=== PATIENT | male | born 1980 | race Caucasian/White ===

== ENCOUNTER 2018-05-28 19:04 | Emergency (ER) | payer OTHER ==
[~2018-05-28] VITALS: Ht 190.5 cm; Wt 95.3 kg
[2018-05-28] MEDS ORDERED: IBUPROFEN 800800 MG PO (20:38)
[2018-05-28 20:45] VITALS: BP 138/87
== END 2018-05-28 20:45 | disposition home or self-care (01) ==
LOC: M.ERS 19:04
DX: M25.512 Pain in left shoulder (principal); M54.5 Low back pain; F17.200 Nicotine dependence, unspecified, uncomplicated; Z85.47 Personal history of malignant neoplasm of testis; V43.03XA Car driver injured in collision with pick-up truck in nontraffic accident, initial encounter; Y93.89 Activity, other specified; Y92.89 Other specified places as the place of occurrence of the external cause; Y99.8 Other external cause status

== ENCOUNTER 2018-09-29 12:15 | Emergency (ER) | payer OTHER ==
[~2018-09-29] VITALS: Ht 190.5 cm; Wt 93.0 kg
[~2018-09-29 12:15] MED LIST: IBUPROFEN 800800 MG PO
[2018-09-29 13:00] LABS: HEMATOCRIT 41.9 % (42.0-52.0); HEMOGLOBIN 14.5 gm/dL (14.0-18.0); MCH 31.6 pg (26.0-34.0); MCHC 34.5 g/dL (28.0-37.0); MCV 91.6 fL (80.0-100.0); MPV 8.2 fl. (7.2-11.1); RBC 4.57 mil/uL (4.50-6.00); RDW-CV 13.5 % (10.5-14.5); WBC 13.1 thou/uL (4.0-11.0)
[2018-09-29 13:14] LABS: ANION GAP 11 mmol/L (7-16); BUN 16 mg/dL (7-18); CALCIUM 8.9 mg/dL (8.5-10.1); CHLORIDE 104 mmol/L (98-107); CO2 24 mmol/L (21-32); CREATININE 1.1 mg/dL (0.6-1.3); GLUCOSE 118 mg/dL (70-99); SODIUM 139 mmol/L (136-145)
[2018-09-29 13:23] LABS: TROPONIN-I LEVEL <0.06 ng/mL (<0.06)
[2018-09-29] MEDS ORDERED: ZPAK PO (14:10)
[2018-09-29 14:26] VITALS: BP 128/79
--- NOTE | 2018-10-01 12:36 | EKG ---
[place] [address] ELECTROCARDIOGRAM REPORT Name: SAMMIETevinNING Room: [facility]#: [id number] Admission: 09/29/18 Attend Phys: Discharge: 09/29/18 Date of : 80 Report #: [id number] THIS REPORT FOR: //name// [facility] ED Test Date: 2018-09-29 Test Time: 12:23:06 Pat Name: NING TIWARI Department: Room: Gender: Speech Language Pathologist Travel: [place] : 1980 Requested By: Apollo Mcclellan Order Number: [id number] Ulises MD: Ezequiel Wheat Measurements Intervals [place] Rate: 65 P: 50 MA: 134 QRS: 65 QRSD: 90 T: 46 QT: 398 QTc: 414 Interpretive Statements Sinus rhythm No previous ECG available for comparison Electronically Signed On 10-01-2018 12:35:57 CDT by Ezequiel Wheat [email or web address] <ELECTRONICALLY SIGNED> By: Ezequiel Wheat MD, [facility] 10/01/18 1235 1223 1223 Ezequiel Wheat MD, FACC /EPI
== END 2018-09-29 14:26 | disposition home or self-care (01) ==
LOC: M.ERS 12:15
PROVIDERS: Emergency Medicine Emergency Medical Services
DX: J32.1 Chronic frontal sinusitis (principal)